=== PATIENT | male | born 1990 | race Caucasian/White ===

== ENCOUNTER 2017-04-09 17:44 | Emergency (ER) | payer OTHER ==
[2017-04-09 17:52] VITALS: BP 121/59
[2017-04-09] MEDS ORDERED: Ibuprofen TAB* 800 MG PO ONE (18:38)
--- NOTE | 2017-04-09 18:58 | ED ---
Lower Extremity - HPI Summary HPI Summary: Pt here w/ Rt ankle sprain around 16:45 tonight. Was playing basketball - jumped up for a rebound and upon landing, twisted ankle. Swelling along lateral aspect and pain - has not tried bearing weight since - afraid it will hurt. Has been elevating and icing - no meds prior to arrival - okay to try ibuprofen. Some tingling in toes but reports he feels his "circulation" is cutting off from elevating on bed while seated in wheelchair. Can move ankle and toes w/o difficulty. H/o "bad" ankle sprain on Lt so is concerned about this injury. No other injuries as a result of fall today. - History of Current Complaint Chief Complaint: EDExtremityLower Stated Complaint: RIGHT ANKLE INJURY Time Seen by Provider: 04/09/17 17:59 Hx Obtained From: Patient Pain Intensity: 8 - Allergies/Home Medications Allergies/Adverse Reactions: Allergies Allergy/AdvReac Type Severity Reaction Status Date / Time No Known Drug Allergy Allergy See Comment Verified 04/09/17 18:57 PMH/Surg Hx/FS Hx/Imm Hx Previously Healthy: Yes Endocrine/Hematology History: Denies: Hx Anticoagulant Therapy, Hx Blood Disorders Infectious Disease History: No Infectious Disease History: Denies: Traveled Outside the [place] in Last 30 Days - Social History Occupation: Student - grad student Lives: Alone Alcohol Use: Weekly Alcohol Amount: socially Hx Substance Use: No Substance Use Type: Reports: None Hx Tobacco Use: No Smoking Status (MU): Never Smoked Tobacco Review of Systems Constitutional: Negative Negative: Fever, Chills, Fatigue Positive: no symptoms reported Musculoskeletal: Other - see HPI Positive: Arthralgia, Edema. Negative: Myalgia, Decreased ROM Skin: Negative Positive: Paresthesia - as in HPI. Negative: Weakness, Numbness Positive: Anxious All Other Systems Reviewed And Are Negative: Yes Physical Exam Triage Information Reviewed: Yes Vital Signs On Initial Exam: Initial Vitals Temp Pulse Resp BP Pulse Ox 99.2 F 56 20 121/59 98 04/09/17 17:48 04/09/17 17:48 04/09/17 17:48 04/09/17 17:48 04/09/17 17:48 Vital Signs Reviewed: Yes Appearance: Positive: Well-Appearing, No Pain Distress, Well-Nourished Skin: Positive: Warm, Dry - no erythema, no ecchymosis, no skin breakdown Head/Face: Positive: Normal Head/Face Inspection Eyes: Positive: EOMI ENT: Positive: Hearing grossly normal Respiratory/Lung Sounds: Positive: Breath Sounds Present Cardiovascular: Positive: Pulses are Symmetrical in both Upper and Lower Extremities Musculoskeletal: Positive: Strength/ROM Intact, Pain @ - Rt lateral malleolus w / TTP and edema here only Neurological: Positive: Normal, Sensory/Motor Intact, Alert, Oriented to Person Place, Time, CN Intact II-III Psychiatric: Positive: Anxious Diagnostics - Vital Signs Vital Signs Temp Pulse Resp BP Pulse Ox 04/09/17 17:48 99.2 F 56 20 121/59 98 - Laboratory Lab Statement: Any lab studies that have been ordered have been reviewed, and results considered in the medical decision making process. Lower Extremity Course/Dx - Course Course Of Treatment: Pt present w/ Rt ankle injury s/p fall and twist. Lateral malleolus w/ edema and TTP. XR reports "tiny calcific density over the lateral joint space possibly representing small fx fragment" - pt placed in cam boot and advised to use crutches/non-weight bearing until seen by orthopedics. Will call this week for appt. otherwise, RICE as in d/c instructions. - Diagnoses Provider Diagnoses: Avulsion fracture of right ankle Discharge - Discharge Plan Condition: Stable Disposition: HOME Patient Education Materials: Ankle Fracture (ED), Crutch Instructions (ED) Referrals: Trev Kent MD [Medical Doctor] - Additional Instructions: Rest, ice, elevate and wear boot -may remove to ice Use crutches to avoid weight bearing You may take ibuprofen 600mg every 6 hours with food for pain/swelling Follow-up with Dr. Kent this week (healthcare science specialist) - call tomorrow to schedule an appointment *If you develop numbness, acute swelling, coolness of extremity, return to ED
--- NOTE | 2017-04-09 19:08 | RAD ---
INDICATION: Right ankle injury. TECHNIQUE: 3 views of the right ankle were obtained. FINDINGS: Soft tissue swelling is noted along the anterolateral aspect of the ankle. There is a tiny 1 mm calcific density which projects over the lateral joint space in the oblique view possibly representing a small fracture fragment. Joint spaces appear maintained. IMPRESSION: SOFT TISSUE SWELLING AND TINY CALCIFIC DENSITY PROJECTING OVER THE LATERAL JOINT SPACE POSSIBLY REPRESENTING A SMALL FRACTURE FRAGMENT.
== END 2017-04-09 19:59 | disposition home or self-care (01) ==
LOC: ED 17:44
DX: S99.911A Unspecified injury of right ankle, initial encounter (principal); X50.1XXA Overexertion from prolonged static or awkward postures, initial encounter; Y93.67 Activity, basketball; Y92.310 Basketball court as the place of occurrence of the external cause
CPT/HCPCS: 99282; A9270-GY